=== PATIENT | male | born 1930 | race Caucasian/White ===

== ENCOUNTER 2017-11-22 11:24 | Day surgery (SDC) | payer OTHER ==
[2017-11-22] MEDS ORDERED: MIDAZOLAM HCL 5 MG/5 ML VIAL ONE (12:03)
[2017-11-22 13:21] VITALS: BP_SYST 155
[2017-11-22] MEDS: fentaNYL CITRATE/PF 100 MCG/2 ML AMP ONE ×2 (13:28→13:30)
[2017-11-22] MEDS: MIDAZOLAM HCL 5 MG/5 ML VIAL ONE ×3 (13:28→13:32)
== END 2017-11-22 14:30 | disposition home or self-care (01) ==
LOC: SDS 11:24 → SMU 11:35 → SDS 14:30
PROVIDERS: ATTEND Internal Medicine
DX: D50.9 Iron deficiency anemia, unspecified (principal); I21.3 ST elevation (STEMI) myocardial infarction of unspecified site; I25.10 Atherosclerotic heart disease of native coronary artery without angina pectoris; E11.9 Type 2 diabetes mellitus without complications; I10 Essential (primary) hypertension; Z79.899 Other long term (current) drug therapy
CPT/HCPCS: 43235; J2250; J3010